=== PATIENT | male | born 1955 | race Caucasian/White ===

== ENCOUNTER 2020-02-08 17:00 | Inpatient (IN) | payer OTHER, BC ==
[2020-02-08] MEDS ORDERED: SODIUM CHLORIDE 1,000 ML IV STA (17:08)
[2020-02-08] MEDS ORDERED: ONDANSETRON 4 MG/2 ML VIAL IVPUSH ONE (17:08)
[2020-02-08] MEDS ORDERED: ACETAMINOPHEN 1000 MG/100 ML VIAL (NON FORMULARY) IVPB ONE (17:27)
[2020-02-08 17:46] LABS: BASO % 0.3 % (0-2.0); EOS % 0.6 % (0-4.5); HEMATOCRIT 46.4 % (35.4-49); HEMOGLOBIN 15.1 GM/dL (11.7-16.9); LYMPH % 12.5 % (8-40); MCH 26.5 pg (25.7-33.7); MCHC 32.6 g/dl (32.0-35.9); MEAN CELL VOLUME 81.3 fl (80-96); MEAN PLT VOLUME 9.2 fl (7.5-11.1); MONO % 15.7 % (3.8-10.2); NEUT % 70.9 % (42.8-82.8); PLATELET COUNT 202 K/MM3 (134-434); RBC 5.71 M/mm3 (4.00-5.60); RDW 14.4 % (11.9-15.9); WHITE BLOOD COUNT 7.5 K/mm3 (4.0-10.0)
[2020-02-08 18:06] LABS: CHLORIDE 110 mmol/L (98-107); POTASSIUM 4.2 mmol/L (3.5-5.1); SODIUM 142 mmol/L (136-145)
[2020-02-08] MEDS ORDERED: ACETAMINOPHEN INJECTION 100 ML IVPB ONE (18:07)
[2020-02-08 18:08] LABS: CALCIUM 9.4 mg/dL (8.5-10.1)
[2020-02-08 18:09] LABS: ALBUMIN 3.7 g/dl (3.4-5.0); ANION GAP 6 MMOL/L (8-16); BLOOD UREA NITROGEN 32.5 mg/dL (7-18); CO2 26 mmol/L (21-32); GLUCOSE,RANDOM 114 mg/dL (74-106); LIPASE 117 U/L (73-393)
[2020-02-08 18:12] LABS: CREATININE 1.6 mg/dL (0.55-1.3); SGOT/AST 16 U/L (15-37); SGPT/ALT 33 U/L (13-61)
[2020-02-08 18:13] LABS: BILIRUBIN,TOTAL 0.6 mg/dL (0.2-1)
[2020-02-08 18:14] LABS: ALK PHOS 69 U/L (45-117); TOT PROT 7.2 g/dl (6.4-8.2)
[2020-02-08] MEDS ORDERED: FAMOTIDINE 20 MG/50 ML IVPB 20 MG/50 ML MG IVPB ONE ×2 (20:14→20:20)
[2020-02-08] MEDS ORDERED: LACTATED RINGERS SOLUTION 1,000 ML/1,000 ML INFUS.BAG IV SCH (21:45)
[2020-02-08] MEDS ORDERED: FUROSEMIDE 40 MG/4 ML INJECTABLE VIAL ONE (21:53)
[2020-02-08 22:01] LABS: EPI CELLS 8 /uL (0-25.1); HYALINE CASTS 2 /uL (0-3.1); URINE APPEARANCE CLEAR; URINE BACTERIA 17 /uL (0-1359); URINE BILIRUBIN NEGATIVE (NEGATIVE); URINE COLOR YELLOW; URINE GLUCOSE (UA) NEGATIVE (NEGATIVE); URINE KETONE NEGATIVE (NEGATIVE); URINE LEUK ESTERASE NEGATIVE (NEGATIVE); URINE NITRITE NEGATIVE (NEGATIVE); URINE PROTEIN TRACE (NEGATIVE); URINE RBC 5 /uL (0-23.9); URINE WBC 4 /uL (0-25.8)
[2020-02-09] MEDS ORDERED: ACETAMINOPHEN 1000 MG/100 ML VIAL (NON FORMULARY) IVPB PRN (00:36)
[2020-02-09 04:29] VITALS: BMI 35.6
[2020-02-09] MEDS: LACTATED RINGERS SOLUTION 1,000 ML/1,000 ML INFUS.BAG IV SCH ×2 (07:02→23:24)
[2020-02-09 07:59] LABS: HEMATOCRIT 39.6 % (35.4-49); HEMOGLOBIN 12.8 GM/dL (11.7-16.9); MCH 26.1 pg (25.7-33.7); MCHC 32.3 g/dl (32.0-35.9); MEAN CELL VOLUME 80.8 fl (80-96); PLATELET COUNT 155 K/MM3 (134-434); RBC 4.91 M/mm3 (4.00-5.60); RDW 14.7 % (11.9-15.9); WHITE BLOOD COUNT 4.5 K/mm3 (4.0-10.0)
[2020-02-09 08:12] LABS: POTASSIUM 4.2 mmol/L (3.5-5.1)
[2020-02-09 08:16] LABS: CALCIUM 8.8 mg/dL (8.5-10.1)
[2020-02-09 08:17] LABS: BLOOD UREA NITROGEN 27.4 mg/dL (7-18); MAGNESIUM 1.9 mg/dL (1.8-2.4)
[2020-02-09 08:18] LABS: ALBUMIN 3.2 g/dl (3.4-5.0)
[2020-02-09 08:20] LABS: CREATININE 1.4 mg/dL (0.55-1.3); PHOSPHOROUS 2.7 mg/dL (2.5-4.9)
[2020-02-09 08:21] LABS: BILIRUBIN,TOTAL 0.6 mg/dL (0.2-1)
[2020-02-09 08:22] LABS: TOT PROT 5.8 g/dl (6.4-8.2)
[2020-02-09] MEDS: VALSARTAN 160 MG TABLET PO SCH (17:42)
[2020-02-09] MEDS: FAMOTIDINE 40 MG TABLET PO SCH (17:42)
[2020-02-09] MEDS ORDERED: PT OWN MED DRAWER 7, Y5N ONE ×2 (21:33→23:27)
[2020-02-10 07:38] LABS: HEMATOCRIT 39.2 % (35.4-49); HEMOGLOBIN 12.5 GM/dL (11.7-16.9); MCH 25.6 pg (25.7-33.7); MCHC 31.9 g/dl (32.0-35.9); MEAN CELL VOLUME 80.2 fl (80-96); MEAN PLT VOLUME 9.2 fl (7.5-11.1); PLATELET COUNT 146 K/MM3 (134-434); RBC 4.88 M/mm3 (4.00-5.60); RDW 14.1 % (11.9-15.9); WHITE BLOOD COUNT 5.1 K/mm3 (4.0-10.0)
[2020-02-10 07:50] VITALS: TEMP 97.8
[2020-02-10 08:17] VITALS: BP 157/94; PULSE 71
[2020-02-10 08:26] LABS: ALBUMIN 3.1 g/dl (3.4-5.0); BLOOD UREA NITROGEN 23.1 mg/dL (7-18); CALCIUM 8.8 mg/dL (8.5-10.1); MAGNESIUM 2.2 mg/dL (1.8-2.4)
[2020-02-10 08:28] LABS: TOT PROT 5.6 g/dl (6.4-8.2)
[2020-02-10 08:29] LABS: CREATININE 1.4 mg/dL (0.55-1.3)
[2020-02-10] MEDS ORDERED: PT OWN MED DRAWER 7, Y5N ONE (08:48)
[2020-02-10] MEDS: VALSARTAN 160 MG TABLET PO SCH (09:06)
[2020-02-10] MEDS: LACTATED RINGERS SOLUTION 1,000 ML/1,000 ML INFUS.BAG IV SCH (09:06)
[2020-02-10] MEDS: FAMOTIDINE 40 MG TABLET PO SCH (09:06)
== END 2020-02-10 14:28 | disposition home or self-care (01) | DRG 389 ==
LOC: JER 17:00 → JERBED 21:32 → J8W 02-09 00:11
PROVIDERS: ADMIT Hospitalist; ATTEND Internal Medicine
DX: K56.609 Unspecified intestinal obstruction, unspecified as to partial versus complete obstruction (principal); N17.9 Acute kidney failure, unspecified; I10 Essential (primary) hypertension
CPT/HCPCS: 36415; 71045-TC-FY; 74018-TC-FY; 74019-TC-FY; 74177-TC; 80053; 81003; 82550; 82553; 83605; 83690; 83735; 84100; 84484; 85025; 85027; 87086; 93005; 93010; 99285-25; C9803; J0131; Q9967; U0003

== ENCOUNTER 2020-04-03 13:47 | Emergency (ER) | payer OTHER, BC ==
[2020-04-03] MEDS ORDERED: ACETAMINOPHEN 325 MG TABLET (FP) PO ONE (13:54)
[2020-04-03] MEDS ORDERED: ACETAMINOPHEN 325 MG TABLET (FP) ONE (13:56)
[2020-04-03 14:03] VITALS: BP 165/86; PULSE 96; TEMP 100.2; BMI 33.0
== END 2020-04-03 14:53 | disposition home or self-care (01) ==
LOC: JER 13:47
DX: U07.1 COVID-19 (principal)
CPT/HCPCS: 71046-TC-FY; 99284-25; C9803; U0003

== ENCOUNTER 2022-09-11 04:24 | Day surgery (SDC) | payer OTHER, BC ==
[2022-09-07 10:01] VITALS: BMI 33.5
[2022-09-11] MEDS ORDERED: oxyCODONE HCL 5 MG TABLET PO PRN (07:46)
[2022-09-11] MEDS ORDERED: ONDANSETRON 4 MG/2 ML VIAL IVPUSH PRN (07:46)
[2022-09-11] MEDS ORDERED: PROMETHAZINE HCL 25 MG/1 ML VIAL IVPB PRN (07:46)
[2022-09-11] MEDS ORDERED: LACTATED RINGERS SOLUTION 1,000 ML IV SCH (08:00)
[2022-09-11] MEDS ORDERED: BUPIVACAINE HCL/PF 0.25% (2.5MG/ML) 10 ML VIAL ONE (08:02)
[2022-09-11] MEDS ORDERED: PROPOFOL 20 ML ONE (08:32)
[2022-09-11] MEDS ORDERED: MIDAZOLAM HCL 2 MG/2 ML SINGLE DOSE VIAL ONE (08:33)
[2022-09-11] MEDS ORDERED: GLYCOPYRROLATE 0.2 MG/1 ML VIAL ONE (08:33)
[2022-09-11] MEDS ORDERED: cefOXitin SODIUM 2 GM VIAL (RESTRICTED TO ID) IVPB ONE ×3 (08:33→09:05)
[2022-09-11] MEDS ORDERED: LIDOCAINE HCL/PF 2% SDV 5ML VIAL ONE (08:34)
[2022-09-11] MEDS ORDERED: SODIUM CHLORIDE 0.9% P/F 10 ML VIAL IJ ONE (08:36)
[2022-09-11] MEDS ORDERED: KETOROLAC TROMETHAMINE 30 MG/1 ML VIAL ONE (09:06)
[2022-09-11] MEDS ORDERED: BUPIVACAINE HCL/PF 0.25% (2.5MG/ML) 10 ML VIAL IJ ONE (09:13)
[2022-09-11] MEDS ORDERED: ACETAMINOPHEN INJECTION 100 ML IVPB ONE (09:17)
[2022-09-11] MEDS ORDERED: MICROFIBRILLAR COLLAGEN 1 GM EACH TP ONE (09:44)
[2022-09-11] MEDS ORDERED: DEXAMETHASONE SOD PHOSPHATE 4 MG/1 ML VIAL ONE (10:19)
[2022-09-11] MEDS ORDERED: ONDANSETRON 4 MG/2 ML VIAL ONE (10:19)
[2022-09-11 11:10] VITALS: RESP 18
[2022-09-11 12:51] VITALS: BP 105/58; PULSE 53; TEMP 97.7
== END 2022-09-11 13:30 | disposition home or self-care (01) ==
LOC: JASU-SURG 04:24
PROVIDERS: ATTEND Surgery
PROC: 06BY0ZC Excision of Hemorrhoidal Plexus, Open Approach (ICD-10-PCS; principal; 2022-09-11 09:00)
DX: K64.3 Fourth degree hemorrhoids (principal)
CPT/HCPCS: 82962; 88304-TC; 94760

== ENCOUNTER 2023-12-18 04:25 | Day surgery (SDC) | payer OTHER, BC ==
[2023-12-17 08:38] VITALS: BMI 34.8
[2023-12-18 11:01] VITALS: TEMP 98
[2023-12-18 11:13] VITALS: RESP 18
[2023-12-18 11:37] VITALS: BP 117/70; PULSE 60
== END 2023-12-18 11:45 | disposition home or self-care (01) ==
LOC: JASU-ENDO 04:25
PROVIDERS: ATTEND Internal Medicine Gastroenterology
PROC: 0DBP8ZX Excision of Rectum, Via Natural or Artificial Opening Endoscopic, Diagnostic (ICD-10-PCS; 2023-12-18)
PROC: 0DBL8ZX Excision of Transverse Colon, Via Natural or Artificial Opening Endoscopic, Diagnostic (ICD-10-PCS; 2023-12-18)
PROC: 3E0H8GC Introduction of Other Therapeutic Substance into Lower GI, Via Natural or Artificial Opening Endoscopic (ICD-10-PCS; 2023-12-18)
PROC: 0DBH8ZX Excision of Cecum, Via Natural or Artificial Opening Endoscopic, Diagnostic (ICD-10-PCS; principal; 2023-12-18 11:00)
DX: Z12.11 Encounter for screening for malignant neoplasm of colon (principal); D12.2 Benign neoplasm of ascending colon; D12.8 Benign neoplasm of rectum; K63.5 Polyp of colon; K57.30 Diverticulosis of large intestine without perforation or abscess without bleeding; Z86.010 Personal history of colon polyps
CPT/HCPCS: 88305-TC

== ENCOUNTER 2024-09-11 19:21 | Emergency (ER) | payer OTHER, BC ==
[2024-09-11 19:29] VITALS: BP 147/72; PULSE 84; RESP 18; TEMP 97.9; BMI 33.5
[2024-09-11] MEDS ORDERED: KETOROLAC TROMETHAMINE 15 MG/ML VIAL ONE (19:49)
[2024-09-11] MEDS ORDERED: LIDOCAINE 4% PATCH TP ONE (19:49)
[2024-09-11] MEDS ORDERED: ACETAMINOPHEN 500 MG TABLET (FP) ONE (19:50)
[2024-09-11] MEDS: ACETAMINOPHEN 500 MG TABLET (FP) PO ONE (19:57)
[2024-09-11] MEDS: KETOROLAC TROMETHAMINE 15 MG/ML VIAL IM ONE (19:58)
[2024-09-11] MEDS: LIDOCAINE 4% PATCH TP ONE (19:58)
[2024-09-11] MEDS ORDERED: LIDOCAINE PATCH REMOVAL MC SCH (22:00)
== END 2024-09-11 20:13 | disposition home or self-care (01) ==
LOC: JER 19:21 → JERFT 19:21
PROC: 3E0233Z Introduction of Anti-inflammatory into Muscle, Percutaneous Approach (ICD-10-PCS; principal; 2024-09-11)
DX: M54.16 Radiculopathy, lumbar region (principal); M54.50 Low back pain, unspecified; G89.29 Other chronic pain; X50.1XXA Overexertion from prolonged static or awkward postures, initial encounter; Y92.009 Unspecified place in unspecified non-institutional (private) residence as the place of occurrence of the external cause
CPT/HCPCS: 99284-25